=== PATIENT | female | born 1985 | race Caucasian/White ===

== ENCOUNTER 2018-05-19 10:46 | Inpatient (IN) | payer BC ==
[2018-05-19] MEDS ORDERED: Lactated Ringers 1000 ML Bag* 1,000 ML IV ONE (12:00)
[2018-05-19] MEDS ORDERED: Lactated Ringers 1000 ML Bag* 1,000 ML IV SCH (12:00)
[2018-05-19] MEDS ORDERED: Buffered Lidocaine 1% SYRIN* 1 ML/SYRINGE INTRADERM ONE (12:00)
--- NOTE | 2018-05-19 12:17 | HP ---
General Information - Reason for Visit Patient reports contractions off an on for several days, getting stronger and more regular since last night. Now approx Q 3-5 min, some lasting 60+ seconds. Mucus discharge, no fluid leaking. - General Information Maternal Age: 32 Grav: 1 Para: 0 SAB: 0 IEA: 0 Estimated Due Date: 05/19/18 Determined By: Early Ultrasound Maternal Blood Type and Rh: A Negative - Results this Serology/RPR Result: Non-Reactive Rubella Result: Immune HBsAg Result: Negative HIV Result: Negative GBS Culture Result: Negative Past Medical History Delivery History: See Records Delivery History Comment: No previous pregnancies Pertinent Past Medical History: Non-Contributory Pertinent Past Surgical History: None Pertinent Family History: Non-Contributory Family History Comment: Breast ca anxiety arthritis neuroma DM 2 ALS Review of Systems Constitutional: Uncomfortable CV Complaint: No Respiratory: Shortness of Breath: No Gastrointestinal: No Nausea/Vomiting, Normal Bowel Movement Genitourinary: No Dysuria, No Bleeding, No Leaking Fluid Musculoskeletal: Contractions Neurological: No Headache, No Visual Changes Movement: Normal Exam Allergies/Adverse Reactions: Allergies No Known Allergies Allergy (Verified 05/19/18 11:24) BP 134/77 T 99.9 HR 84 RR 18 O2 100 - Measurements Height: 4 ft 11 in Weight: 120 lb Weight in lbs: 120.825668 Body Mass Index (BMI): 24.2 Pre- Weight: 88 lb Weight Gained This : 32 lbs and 0 ozs - Exam Breast: Breast Exam Deferred CVA: No CVA Tenderness Extremities: No Edema Heart: Normal Rhythm/Heart Sounds HEENT: No Significant Findings Lungs: Clear Bilaterally Rectal: Rectal Exam Deferred Reflexes: DTR 2+, - - no clonus Thyroid: - - WNL @ entry to care - Abdominal Exam Abdomen Exam: Non-Tender, Fundal Height Consistent with Dates - Ultrasound/Biophysical Profile Ultrasound Status: Not Done Targeted Exam Findings See L&D Outpatient Visit Provider Note for Findings: N/A Estimated Weight: 6.5-7lb Cervical Exam: 3cm, 4cm Effacement: 100% Station: 0 Presenting Part: Vertex Membrane Status: Bulging Bleeding/Discharge: Bloody Show EFM Findings - External Monitor Findings Baseline Heart Rate: 150 External Monitor Findings: Accelerations Present, No Pattern of Variable or Late Decelerations, Variability Moderate Contractions: Regular, Moderate, 45-90 Seconds Contraction Frequency: Q 3-5 min Assessment/Plan - Assessment IUP @ 40+0 weeks gestation in early labor. IBOW. No evidence metabolic acidemia - Plan Plan: Admit - Anticipate Vaginal Delivery Plan Comment: Admit to L&D, plan to continue intermittent monitoring. Pain management as desired. Anticipate SVB. - Date/Time of Admission Date of Admission: 05/19/18 Time of Admission: 11:58
--- NOTE | 2018-05-19 14:42 | PN ---
Progress Note - Progress Note Date of Service: 05/19/18 Note: S: Resting between contractions, they are stronger. Was in tub, on ball, now bed. Coping well. O: VE deferred UCs approx q 3-4 min by report FHT doppler 145 bpm A: IUP in active labor No evidence acidemia P: Continue to monitor, anticipate SVB.
--- NOTE | 2018-05-19 16:24 | PN ---
Progress Note - Progress Note Date of Service: 05/19/18 Note: S: Contractions stronger, coping with help from and plasterer stucco. Patient desires VE. O: VE 6cm/100/0 FHT 150 doppler UCs approx q 2-4 min VSS, afebrile A: IUP in active labor No evidence acidemia P: Patient prefers to request pain medication if desired. Continue to monitor. Anticipate SVB.
--- NOTE | 2018-05-19 21:35 | PN ---
Progress Note - Progress Note Date of Service: 05/19/18 Note: S: Patient coping very well with excellent support from partner and rat trapper. Contractions stronger, she also reports continued gushes of fluid with position changes. Some low pelvic/rectal pressure with some contractions. O: VE 9.5/100/+1 FHT 155 doppler vss, afebrile UCs Q 2-3 min clear fluid, bloody show A: IUP in active labor No evidence metabolic acidemia P: Anticipate SVB
[2018-05-20] MEDS: Ibuprofen TAB* 600 MG ONE ×2 (00:40→05:50)
[2018-05-20] MEDS ORDERED: Dibucaine 1% 28.35 GM TUBE PR PRN (01:06)
[2018-05-20] MEDS ORDERED: Glycerin ADULT SUPP PR PRN (01:06)
[2018-05-20] MEDS ORDERED: OXYTOCIN* 10 UNITS/ML 1 ML VIAL IM ONE (01:06)
[2018-05-20] MEDS ORDERED: Witch Hazel PAD* JAR TOPICAL PRN (01:06)
[2018-05-20] MEDS: Ibuprofen TAB* 600 MG PO PRN ×4 (01:07→20:25)
[2018-05-20] MEDS ORDERED: Lactated Ringers 1000 ML Bag* 1,000 ML IV SCH (02:00)
[2018-05-20] MEDS ORDERED: Ammonia Inhalant* 1 EA AMP ONE (06:44)
--- NOTE | 2018-05-20 08:02 | PROCNOTE ---
[facility] OB: Delivery Note - Delivery A Date of : 05/20/18 Time of : 00:16 [place] Sex: Female Weight at : 6 lb 12 oz Score 1 Minute: 9 Score 5 Minutes: 9 Gestational Age in Weeks and Days at Delivery: 40 Weeks and 1 Days Delivery Method: Spontaneous Vaginal Labor: Spontaneous Did Patient attempt ?: N/A, No Previous Amniotic Fluid: Clear Estimated Blood Loss: 300 Anesthesia/Analgesia: None Delivered By: Del Valderrama - Nursery Level of Nursery: Regular/Bedside - Perineum Perineal Injury: 2nd Degree Perineal Repair: By Delivering Practioner - Events Delivery Events of Note: Pitocin Only After Delivery - Additional Delivery Notes Additional Delivery Notes: 40+1. Patient with GDM, admitted in spontaneous active labor with progression to complete and urge to push. LOL 12'21", pushed 2' 25". Coached through various positions and improved pushing technique. Baby born OA to SHELDON @ 0016 with shoulders following smoothly. To maternal abdomen with spontaneous cry. Cord doubly clamped and cut by FOB once pulsations ceased. Placenta delivered with gentle cord traction @ 0021. Fundus firm with IM pitocin. EBL 300ml. Repair of perineum with 3-0 Rapide under 1% lidocaine. Mother and baby stable, initiating . Baby name Yolanda. Weight 6lb 12oz
[2018-05-20] MEDS: Docusate CAP* 100 MG PO SCH ×3 (08:22→20:26)
[2018-05-20] MEDS ORDERED: Lidocaine 1%* 5 ML VIAL ONE (18:44)
[2018-05-21] MEDS: Acetaminophen TAB* 325 MG PO PRN ×2 (00:49→20:08)
[2018-05-21] MEDS ORDERED: RHO D Immune Globulin (HUMAN)* 300 MCG = 1,500 I.U. INJ IM ONE (06:00)
[2018-05-21 06:54] LABS: Hematocrit 29 % (35-47); Hemoglobin 9.9 g/dl (12.0-16.0); Mean Corpuscular HGB Conc 35 g/dl (31-36); Mean Corpuscular Hemoglobin 32 pg (27-31); Mean Corpuscular Volume 93 fL (80-97); Mean Platelet Volume 7.5 fL (7.4-10.4); Platelet Count 157 10^3/ul (150-450); Red Blood Count 3.07 10^6/ul (4.00-5.40); Red Cell Distribution Width 13 % (10.5-15); White Blood Count 10.3 10^3/ul (3.5-10.8)
[2018-05-21] MEDS: Ibuprofen TAB* 600 MG PO PRN ×2 (07:22→17:25)
[2018-05-21 07:23] LABS: ABS Basophils 0 10^3/ul (0-0.2); ABS Eosinophils 0.2 10^3/ul (0-0.6); ABS Lymphocytes 1.8 10^3/ul (1.0-4.8); ABS Neutrophils 7.3 10^3/ul (1.5-7.7); ABS Nucleated RBC 0 10^3/ul; Eosinophil % 1.7 %; Lymphocyte % 17.9 %; Nucleated Red Blood Cells % 0
[2018-05-21] MEDS ORDERED: Analgesic BALM* 114 GM TOPICAL SCH (09:00)
[2018-05-21] MEDS: Ferrous Gluconate TAB* 324 MG TAB PO SCH ×2 (10:35→21:21)
[2018-05-21] MEDS: Docusate CAP* 100 MG PO SCH ×3 (10:35→21:21)
[2018-05-22] MEDS: Ibuprofen TAB* 600 MG PO PRN ×3 (00:10→15:18)
--- NOTE | 2018-05-22 07:52 | PTEDU ---
Patient Name: MIKAL PEMBERTON MIKAL PEMBERTON selected video: Follow Me Mum: [employer] Successful to view on 05/22/19 at 7:52:09 AM [id number]
[2018-05-22] MEDS: Ferrous Gluconate TAB* 324 MG TAB PO SCH (07:57)
[2018-05-22] MEDS: Docusate CAP* 100 MG PO SCH ×2 (07:57→15:20)
[2018-05-22 18:24] VITALS: BP 130/62
--- NOTE | 2018-05-22 18:50 | PTEDU ---
Patient Name: MIKAL PEMBERTON MIKAL PEMBERTON selected video: Never Ever Shake a Baby to view on 05/22/2018 at 6:49:41 PM [id number]
== END 2018-05-22 17:35 | disposition home or self-care (01) | DRG 560 ==
LOC: MCHOBOUT 10:46 → MCHOB 11:58
PROVIDERS: ADMIT Midwife; ATTEND Midwife
PROC: 10907ZC Drainage of Amniotic Fluid, Therapeutic from Products of Conception, Via Natural or Artificial Opening (ICD-10-PCS; principal; 2018-05-20)
PROC: 10E0XZZ Delivery of Products of Conception, External Approach (ICD-10-PCS; 2018-05-20)
PROC: 4A1HXCZ Monitoring of Products of Conception, Cardiac Rate, External Approach (ICD-10-PCS; 2018-05-20)
PROC: 0KQM0ZZ Repair Perineum Muscle, Open Approach (ICD-10-PCS; 2018-05-20)
DX: O48.0 Post-term pregnancy (principal); Z37.0 Single live birth; O24.429 Gestational diabetes mellitus in childbirth, unspecified control; Z3A.40 40 weeks gestation of pregnancy; Z67.11 Type A blood, Rh negative; O70.1 Second degree perineal laceration during delivery; O90.81 Anemia of the puerperium
CPT/HCPCS: 36415; 85025; 85461; 86900; 86901; A9270-GY; J2590; J2790

== ENCOUNTER 2018-11-18 12:49 | Emergency (ER) | payer BC ==
[2018-11-18 13:31] VITALS: BP 114/67
--- NOTE | 2018-11-18 13:41 | UC ---
Skin Complaint HPI - HPI Summary HPI Summary: Patient is a 32-year-old female here with a right leg rash. Patient woke up this morning with a circular, erythematous rash to her right medial thigh. Patient has no central clearing to the rash. Rash is itchy. Patient did notice a bug crawling maxillary her yesterday but nothing attached to her. Patient's neuro had a tick bite before. Patient has no fever, chills, lethargy , joint pain. medications reviewed - History of Current Complaint Chief Complaint: UCGeneralIllness Time Seen by Provider: 11/18/18 13:32 Stated Complaint: RASH Hx Obtained From: Patient Hx Last Menstrual Period: no periods - 6mo Onset/Duration: Sudden Onset Timing: Constant Onset Severity: Mild Pain Intensity: 0 - Allergy/Home Medications Allergies/Adverse Reactions: Allergies Allergy/AdvReac Type Severity Reaction Status Date / Time No Known Allergies Allergy Verified 05/19/18 11:24 PMH/Surg Hx/FS Hx/Imm Hx Previously Healthy: Yes - Surgical History Surgical History: None - Family History Known Family History: Positive: Non-Contributory - Social History Alcohol Use: None Substance Use Type: None Smoking Status (MU): Never Smoked Tobacco - Immunization History Most Recent Influenza Vaccination: 12/2017 Most Recent Pneumonia Vaccination: none Review of Systems All Other Systems Reviewed And Are Negative: Yes Constitutional: Negative: Fever, Chills Skin: Positive: Rash Eyes: Negative: Diplopia ENT: Negative: Sore Throat, Nasal Discharge Respiratory: Negative: Shortness Of Breath, Cough Cardiovascular: Negative: Chest Pain Gastrointestinal: Negative: Vomiting, Diarrhea Physical Exam - Summary Physical Exam Summary: Vital Signs Reviewed: Yes A+Ox3, no distress Eyes: Conjunctiva Clear ENT: Hearing grossly normal neck: supple Respiratory: Positive: No respiratory distress, No accessory muscle use Cardiovascular: skin color reflect adequate perfusion Musculoskeletal Exam: POMPA x 4 without difficulty Neurological: Positive: Alert, ambulatory without difficulty Skin: 2 cm x 2 cm area of erythema on the medial side. No central clearing. No warmth, fluctuance, induration. Triage Information Reviewed: Yes Vital Signs: Initial Vital Signs Temp 97.5 F 11/18/18 13:26 Pulse 71 11/18/18 13:26 Resp 16 11/18/18 13:26 BP 114/67 11/18/18 13:26 Pulse Ox 97 11/18/18 13:26 Course/Dx - Course Course Of Treatment: Patient is here with a rash to her right medial thigh. Patient's rash is not consistent with Lyme disease in both its appearance and her history. Patient is likely suffering from a bug bite. Patient was encouraged to use topical Benadryl and that she can use oral Benadryl occasionally given her current breast-feeding status. - Differential Diagnoses - Skin Complaint Differential Diagnoses: Allergic Reaction, Impetigo, Poison Glory, Urticaria, Viral Exanthem - Diagnoses Provider Diagnosis: Dermatitis Discharge - Sign-Out/Discharge Documenting (check all that apply): Patient Departure All imaging exams completed and their final reports reviewed: No Studies - Discharge Plan Condition: Stable Disposition: HOME Patient Education Materials: Lyme Disease (ED), Tick Bite (ED) Referrals: Rosio Causey SENIOR PRINCIPAL SOFTWARE ENGINEER [Primary Care Provider] - Additional Instructions: Please return if you have joint pain, fatigue, swollen glands in your neck, or any other concerning symptom - Billing Disposition and Condition Condition: STABLE Disposition: Home
== END 2018-11-18 13:50 | disposition home or self-care (01) ==
LOC: UCEAST 12:49
DX: L30.9 Dermatitis, unspecified (principal)
CPT/HCPCS: 99211; G0463

== ENCOUNTER 2018-12-31 12:23 | Emergency (ER) | payer BC ==
[2018-12-31 12:32] VITALS: BP 103/52
--- NOTE | 2018-12-31 13:06 | UC ---
Throat Pain/Nasal Benigno HPI - HPI Summary HPI Summary: Patient is a 33yo female presenting with congestion x2 weeks and worsening sinus pain x3 days. Patient also notes one episode of dizziness this morning and states that has happened in the past. Notes ear pressure. Notes nasal congestion with yellow/green discharge. Notes sinus tenderness. Notes mild sore throat. Denies cough and SOB. Denies fever and chills. Denies nausea and vomiting. Notes she is currently breast feeding. - History of Current Complaint Chief Complaint: UCGeneralIllness Stated Complaint: SINUS CONGESTION Hx Obtained From: Patient Hx Last Menstrual Period: Breast feeding Pain Intensity: 2 Pain Scale Used: 0-10 Numeric - Allergies/Home Medications Allergies/Adverse Reactions: Allergies Allergy/AdvReac Type Severity Reaction Status Date / Time No Known Allergies Allergy Verified 12/31/18 12:32 PMH/Surg Hx/FS Hx/Imm Hx Previously Healthy: Yes - Surgical History Surgical History: None - Family History Known Family History: Positive: Non-Contributory - Social History Alcohol Use: None Substance Use Type: None Smoking Status (MU): Never Smoked Tobacco - Immunization History Most Recent Influenza Vaccination: 12/2017 Most Recent Pneumonia Vaccination: none Review of Systems All Other Systems Reviewed And Are Negative: Yes Constitutional: Positive: Negative. Negative: Fever, Chills, Fatigue Skin: Positive: Negative Eyes: Negative: Blurred Vision, Drainage, Eye Redness ENT: Positive: Ear Ache - pressure, Sinus Congestion, Sinus Pain/Tenderness. Negative: Nasal Discharge Respiratory: Positive: Negative. Negative: Shortness Of Breath, Cough Cardiovascular: Positive: Negative. Negative: Palpitations, Chest Pain Gastrointestinal: Positive: Negative. Negative: Abdominal Pain, Vomiting, Diarrhea, Nausea Genitourinary: Positive: Negative Psychological: Positive: Negative Physical Exam Triage Information Reviewed: Yes Appearance: Well-Appearing, No Pain Distress, Well-Nourished Vital Signs: Initial Vital Signs Temp 97.7 F 12/31/18 12:28 Pulse 68 12/31/18 12:28 Resp 18 12/31/18 12:28 BP 103/52 12/31/18 12:28 Pulse Ox 99 12/31/18 12:28 Vital Signs Reviewed: Yes Eyes: Positive: Conjunctiva Clear. Negative: Conjunctiva Inflamed, Discharge ENT: Positive: Hearing grossly normal, Pharynx normal, Nasal congestion, TMs normal, Sinus tenderness, Uvula midline. Negative: Pharyngeal erythema, Nasal drainage, TM bulging, TM dull, TM red, Tonsillar swelling, Tonsillar exudate Neck exam: Normal Neck: Positive: Supple, Nontender, No Lymphadenopathy Respiratory Exam: Normal Respiratory: Positive: Lungs clear, Normal breath sounds, No respiratory distress, No accessory muscle use Cardiovascular Exam: Normal Cardiovascular: Positive: RRR. Negative: Tachycardia Neurological: Positive: Alert Psychological: Positive: Age Appropriate Behavior Skin Exam: Normal Throat Pain/Nasal Course/Dx - Course Course Of Treatment: I gave the patient a prescription for amoxicillin to treat sinusitis. Informed her she could continue her nasicort as directed. Instructed her to follow up with her PCP if her symptoms persist. Instructed her to go to the emergency room if she experiences fever, increased dizziness, nausea or vomiting. Patient voiced understanding and agreed to treatment plan. - Differential Dx/Diagnosis Provider Diagnosis: Sinusitis Discharge ED - Sign-Out/Discharge Documenting (check all that apply): Patient Departure All imaging exams completed and their final reports reviewed: No Studies - Discharge Plan Condition: Stable Disposition: HOME Prescriptions: Amoxicillin PO (*) [Amoxicillin 875 MG (*)] 875 mg PO BID #14 tab Patient Education Materials: Sinusitis (ED) Referrals: Rosio Causey EDITOR MAP [Primary Care Provider] - If Needed Additional Instructions: Take amoxicillin as prescribed for the treatment of your sinusitis. Be sure to get plenty of rest and fluids. If your symptoms persist, follow up with your primary care physician. Go to the emergency room you experience fever, nausea, vomiting, dizziness, or shortness of breath. - Billing Disposition and Condition Condition: STABLE Disposition: Home
== END 2018-12-31 13:02 | disposition home or self-care (01) ==
LOC: UCEAST 12:23
DX: J32.9 Chronic sinusitis, unspecified (principal)
CPT/HCPCS: 99212; G0463